=== PATIENT | female | born 1995 | race Hispanic/Latino ===

== ENCOUNTER 2022-12-09 12:21 | Emergency (ER) | payer OTHER ==
[2022-12-09 13:00] LABS: Pregnancy Test - Urine (BHCG) Negative (Negative); Pregu Control Background? CLEAR/WHITE (CLR/WHITE); Pregu Control Bar Appear? YES (CONTROL BAR); Specific Gravity 1.018 (1.002-1.036)
[2022-12-09] MEDS ORDERED: Naproxen 500 MG TAB ONE (13:38)
== END 2022-12-09 14:10 | disposition home or self-care (01) ==
LOC: NAV ERS 12:21
DX: S76.011A Strain of muscle, fascia and tendon of right hip, initial encounter (principal); S90.31XA Contusion of right foot, initial encounter; V43.52XA Car driver injured in collision with other type car in traffic accident, initial encounter
CPT/HCPCS: 72170; 81025